=== PATIENT | male | born 1980 | race African-American/Black ===

== ENCOUNTER 2020-10-04 01:49 | Emergency (ER) | payer MEDICAID ==
[~2020-10-04] VITALS: Ht 172.7 cm; Wt 72.6 kg
[2020-10-04] MEDS ORDERED: Benztropine 1mg tab ORAL ONE (02:00)
[2020-10-04] MEDS ORDERED: BENZTROPINE MESY1 MG ORAL (02:03)
[2020-10-04] MEDS ORDERED: RISPERDAL1 MG PO (02:03)
--- NOTE | 2020-10-04 02:04 | Emergency Room Report ---
History of Present Illness General Chief Complaint: Behavioral Complaint Source: Patient Present Illness HPI 40-year-old male with a history of schizophrenia. Patient presents with chief complaint of hearing voices. This been a chronic problem but worse in the last few days. He denies any drug use. He said he is out of his Risperdal and Cogentin. He wants to be back on it. No suicidal thoughts homicidal thought. Nothing made it better. Not made worse. Denies any other complaint. Allergies: Coded Allergies: No Known Allergies (Unverified , 10/04/20) COVID-19 Screening Contact w/high risk pt: No Experienced COVID-19 symptoms?: No COVID-19 Testing performed KENNEL MANAGER: No Patient History Past Medical History: see triage record, old chart reviewed, psych hx Past Surgical History: none Pertinent Family History: none Social History: Reports: smoking Immunizations: other Reviewed Nursing Documentation: PMH: Agreed; PSxH: Agreed Review of Systems Eye: Denies: eye pain, blurred vision ENT: Denies: ear pain, nose congestion, throat swelling Respiratory: Denies: cough, shortness of breath Cardiovascular: Denies: chest pain, palpitations Gastrointestinal: Denies: abdominal pain, diarrhea, nausea, vomiting Musculoskeletal: Denies: back pain, joint pain Skin: Denies: rash Psychiatric: Reports: prior hx, hallucinations Neurological: Denies: headache, numbness Endocrine: Denies: increased thirst, increased urine Hematologic/Lymphatic: Denies: easy bruising All Other Systems: negative except mentioned in HPI Physical Exam Vital Signs Date Time Temp Pulse Resp B/P (MAP) Pulse Ox O2 Delivery O2 Flow Rate FiO2 10/04/20 01:46 98.6 78 18 137/86 (103) 99 Room Air Vitals normal Sp02 EP Interpretation: reviewed, normal General Appearance: well appearing, no apparent distress, alert, other - Patient is sleeping Head: normocephalic, atraumatic Eyes: bilateral eye PERRL, bilateral eye EOMI ENT: hearing grossly normal, normal pharynx Neck: full range of motion, supple, no meningismus Respiratory: chest non-tender, lungs clear, normal breath sounds Cardiovascular #1: regular rate, rhythm, no murmur Gastrointestinal: normal bowel sounds, non tender, no mass, no organomegaly, no bruit, non-distended Musculoskeletal: back normal, normal range of motion, gait/station normal Psychiatric: mood/affect normal Medical Decision Making Homeless Attestation I, The treating physician, Dr Frdey Camacho, has assessed and agrees that patient is medically stable for discharge to an outpatient disposition. Diagnostic Impression: Primary Impression: Psychosis Qualified Codes: F23 - Brief psychotic disorder ER Course Patient with increasing hallucination. No suicidal thought homicidal thought. No criteria for 5150. Patient told me that he just want a place to sleep for tonight. This patient is a chronic risk of self injury due to poor impulse control, limited coping skills, and judgment intermittently impaired by intoxication. I believe that the available clinical evidence to suggest that these characteristics derived primarily from personality disorder and are likely very stable over time. Hospitalization would likely attenuate risk of self-harm only during correction period, without lasting risk reduction. Serious self-harm, while possible, would likely be inadvertent, and because of impulsivity, and foreseeable. For these reasons, I do not believe hospitalization would provide meaningful reduction in risk of self-harm. Last Vital Signs Date Time Temp Pulse Resp B/P (MAP) Pulse Ox O2 Delivery O2 Flow Rate FiO2 10/04/20 01:46 98.6 78 18 137/86 (103) 99 Room Air Status: improved Disposition: HOME, SELF-CARE Condition: Stable Scripts Benztropine Mesylate* (BENZTROPINE MESYLATE*) 1 Mg Tablet 1 MG ORAL BID for 30 Days, #60 TAB Prov: Fredy Camacho MD 10/04/20 Risperidone* (RISPERDAL*) 1 Mg Tablet 1 MG PO DAILY, #30 TAB Prov: Fredy Camacho MD 10/04/20 Patient Instructions: Self-Destructive Behavior Additional Instructions: Staying from drugs and alcohol. Follow-up with mental health in a week. Return if worse. Fredy Camacho MD Oct 04, 2020 02:03
--- NOTE | 2020-10-04 02:10 | NUR ---
ED Nurse Note: Returned from break to resume care, pt in bed resting quietly, has been discharged by md and will leave in am.
[2020-10-04 04:55] VITALS: BP 137/86
--- NOTE | 2020-10-04 04:55 | NUR ---
Homeless Discharge: Patient is being discharged from medical care. Awake, alert and oriented x3. After care instructions, including referral to community resources were given. Patient verbalized understanding of After care instructions; at this time patient does not request medications, equipment or placement. Patient signed patient consent in the medical record for patient destination upon discharge. All medical devices such as IV and ID band were removed. Patient ambulated out with all personal belongings with steady gait.
== END 2020-10-04 04:55 | disposition home or self-care (01) ==
LOC: EDBD 01:49 → EMR 01:57
DX: F23 Brief psychotic disorder (principal); F17.200 Nicotine dependence, unspecified, uncomplicated
CPT/HCPCS: 99282